=== PATIENT | female | born 1990 | race Caucasian/White ===

== ENCOUNTER 2020-03-08 08:27 | Emergency (ER) | payer OTHER ==
[~2020-03-08] VITALS: Ht 160 cm; Wt 54.4 kg
[2020-03-08 08:40] VITALS: BP 139/81
[2020-03-08] MEDS ORDERED: HYDROcodone-ACET 5/325MG TAB PO ONE (09:00)
== END 2020-03-08 09:38 | disposition home or self-care (01) ==
LOC: ER 08:27
DX: S46.911A Strain of unspecified muscle, fascia and tendon at shoulder and upper arm level, right arm, initial encounter (principal); W19.XXXA Unspecified fall, initial encounter; Y93.89 Activity, other specified; Y92.89 Other specified places as the place of occurrence of the external cause; Y99.8 Other external cause status
CPT/HCPCS: 73030